=== PATIENT | male | born 1955 | race Caucasian/White ===

== ENCOUNTER 2017-11-02 05:00 | Emergency (ER) | payer OTHER ==
--- NOTE | 2017-11-02 05:48 | ER Document Report ---
ED Medical Screen (RME) - General Chief Complaint: Flank Pain Stated Complaint: FLANK PAIN Time Seen by Provider: 11/02/17 05:40 Notes: 61-year-old male comes emergency department for chief complaint of left flank pain, he states it feels like a dull and increasing pain, he states pain worsened and he became nauseated. He denies vomiting, denies abdominal pain, denies chest pain, denies dizziness or lightheadedness. No history of kidney stones. TRAVEL OUTSIDE OF THE [place] IN LAST 30 DAYS: No - Related Data Allergies/Adverse Reactions: Penicillins Allergy (Verified 08/07/14 08:52) Past Medical History - Past Medical History Cardiac Medical History: Reports: Hx Hypercholesterolemia, Hx Hypertension Denies: Hx Coronary Artery Disease, Hx Heart Attack Pulmonary Medical History: Denies: Hx Asthma, Hx Bronchitis, Hx COPD, Hx Pneumonia Neurological Medical History: Denies: Hx Cerebrovascular Accident, Hx Seizures Endocrine Medical History: Reports: Hx Diabetes Mellitus Type 2 - borderline Musculoskeltal Medical History: Reports Hx Arthritis - hands, knees, back - Immunizations Hx Diphtheria, Pertussis, Tetanus Vaccination: No Physical Exam - Vital signs Vitals: Temp Pulse Resp BP Pulse Ox 97.9 F 64 20 170/93 H 97 11/02/17 05:06 11/02/17 05:06 11/02/17 05:06 11/02/17 05:06 11/02/17 05:06 - General General appearance: Appears well In distress: None - Abdominal Inspection: Normal Tenderness: Nontender. No: Tender Course - Re-evaluation Re-evalutation: Somewhat hypertensive, vital signs otherwise unremarkable. Indicates the left CVA area as the location of pain. No overt CVA tenderness, soft nontender abdomen, well-appearing patient, declines pain medication, based on his presentation, normal distal pulses, I have fairly low suspicion of aortic dissection, more likely ureterolithiasis. Workup pending. I have greeted and performed a rapid initial assessment of this patient. A comprehensive ED assessment and evaluation of the patient, analysis of test results and completion of the medical decision making process will be conducted by additional ED providers. - Vital Signs Vital signs: Temp Pulse Resp BP Pulse Ox 97.9 F 64 20 170/93 H 97 11/02/17 05:06 11/02/17 05:06 11/02/17 05:06 11/02/17 05:06 11/02/17 05:06 Doctor's Discharge - Discharge Referrals: SCOTT LEON MD [Primary Care Provider] - Follow up as needed
[2017-11-02 06:30] LABS: ABSOLUTE BASOPHILS # (AUTO) 0.1 10^3/uL (0.0-0.2); ABSOLUTE EOSINOPHILS # (AUTO) 0.3 10^3/uL (0.0-0.6); ABSOLUTE LYMPHOCYTES (AUTO) 1.4 10^3/uL (0.5-4.7); ABSOLUTE MONOCYTES (AUTO) 0.7 10^3/uL (0.1-1.4); ABSOLUTE NEUT (AUTO) 6.3 10^3/uL (1.7-8.2); BASOPHILS % (AUTO) 0.7 % (0-2); HEMATOCRIT 44.1 % (37.9-51.0); HEMOGLOBIN 15.2 g/dL (13.5-17.0); LYMPHOCYTES % (AUTO) 15.9 % (13-45); MEAN CORPUSCULAR HEMOGLOBIN 31.4 pg (27.0-33.4); MEAN CORPUSCULAR HGB CONC 34.4 g/dL (32.0-36.0); MEAN CORPUSCULAR VOLUME 91 fl (80-97); MONOCYTES % (AUTO) 8.2 % (3-13); PLATELET COUNT 223 10^3/uL (150-450); RED BLOOD COUNT 4.83 10^6/uL (4.35-5.55); RED CELL DISTRIBUTION WIDTH 13.4 % (11.5-14.0); SEGMENTED NEUTROPHILS % (AUTO) 72.2 % (42-78); TOTAL CELLS COUNTED % (AUTO) 100 %; WHITE BLOOD COUNT 8.8 10^3/uL (4.0-10.5)
[2017-11-02 06:41] LABS: APPEARANCE,URINE CLEAR; BILIRUBIN,URINE NEGATIVE (NEGATIVE); COLOR,URINE YELLOW; GLUCOSE, URINE NEGATIVE (NEGATIVE); KETONES,URINE NEGATIVE (NEGATIVE); LEUKOCYTE ESTERASE,URINE NEGATIVE (NEGATIVE); NITRITE,URINE NEGATIVE (NEGATIVE); PROTEIN,URINE NEGATIVE (NEGATIVE); URINE SPECIFIC GRAVITY 1.016; UROBILINOGEN,URINE NEGATIVE mg/dL (<2.0)
[2017-11-02 06:58] LABS: ALANINE AMINOTRANSFERASE 31 U/L (21-72); ALBUMIN 4.2 g/dL (3.5-5.0); ALKALINE PHOSPHATASE 81 U/L (38-126); ANION GAP 12 (5-19); ASPARTATE AMINO TRANSFERASE 26 U/L (17-59); BILIRUBIN,DIRECT 0.2 mg/dL (0.0-0.4); BILIRUBIN,TOTAL 0.5 mg/dL (0.2-1.3); BLOOD UREA NITROGEN 19 mg/dL (7-20); CALCIUM 9.7 mg/dL (8.4-10.2); CARBON DIOXIDE 24 mmol/L (22-30); CHLORIDE 105 mmol/L (98-107); GLUCOSE 121 mg/dL (75-110); POTASSIUM 4.3 mmol/L (3.6-5.0); SODIUM 140.8 mmol/L (137-145); TOTAL PROTEIN 6.9 g/dL (6.3-8.2)
--- NOTE | 2017-11-02 07:02 | RADIOLOGY REPORT (SQ) ---
CT abdomen and pelvis without contrast on 11/02/2017 CLINICAL INDICATION: Left-sided back pain, nausea TECHNIQUE: Multiple axial images are obtained throughout the abdomen and pelvis without the administration of contrast. This exam was performed according to our departmental dose-optimization program, which includes automated exposure control, adjustment of the mA and/or kV according to patient size and/or use of iterative reconstruction technique. Total DLP is 1090.21 mGy*cm. COMPARISON: None FINDINGS: Abdomen: There is minimal basilar atelectasis. Cyst is noted in the lower pole of the right kidney. There is mild left hydronephrosis and proximal left hydroureter to the level of a 5-6 mm left proximal ureteral stone at the L2-3 disc space level. There is minimal left perinephric stranding related to the obstruction. There are no other renal or ureteral stones. The unenhanced solid abdominal organs are otherwise unremarkable. Vascular calcifications are noted. There is no abdominal adenopathy. There is no free fluid or free air within the abdomen. There is a small umbilical hernia containing only fat. Pelvis: There is small left inguinal hernia containing only fat. There is no free fluid in the pelvis. There is no pelvic adenopathy. The pelvic portion of the GI tract including the appendix is unremarkable. Degenerative changes are noted in the spine. IMPRESSION: 1. Mild left hydronephrosis and proximal hydroureter to the level of a 5-6 mm left proximal ureteral stone. 2. Otherwise no acute abnormality.
--- NOTE | 2017-11-02 07:33 | ER Document Report ---
ED General - General Chief Complaint: Flank Pain Stated Complaint: FLANK PAIN Time Seen by Provider: 11/02/17 05:40 TRAVEL OUTSIDE OF THE [place] IN LAST 30 DAYS: No - HPI Notes: 61-year-old male presents to the ER with sudden onset of left flank pain. Patient stated 3 AM he had sudden onset of left flank pain positive nausea denies vomiting. Denies any fever or chills. Denies chest pain denies shortness of breath. Is an aching left flank pain he rates as moderate to severe. He has never had a history of stones in the past. Denies any hematuria or dysuria. Denies black bloody or tarry stools denies any falls or trauma. - Related Data Allergies/Adverse Reactions: Penicillins Allergy (Verified 11/02/17 06:14) Past Medical History - Social History Smoking Status: Unknown if Ever Smoked Chew tobacco use (# tins/day): No Drug Abuse: None Family History: CAD Patient has suicidal ideation: No Patient has homicidal ideation: No - Past Medical History Cardiac Medical History: Reports: Hx Hypercholesterolemia, Hx Hypertension Denies: Hx Coronary Artery Disease, Hx Heart Attack Pulmonary Medical History: Denies: Hx Asthma, Hx Bronchitis, Hx COPD, Hx Pneumonia Neurological Medical History: Denies: Hx Cerebrovascular Accident, Hx Seizures Endocrine Medical History: Reports: Hx Diabetes Mellitus Type 2 - borderline Renal/ Medical History: Denies: Hx Peritoneal Dialysis GI Medical History: Reports: Hx Gastroesophageal Reflux Disease Musculoskeletal Medical History: Reports Hx Arthritis - hands, knees, back - Immunizations Hx Diphtheria, Pertussis, Tetanus Vaccination: No Review of Systems - Review of Systems Constitutional: denies: Chills, Fever Cardiovascular: denies: Chest pain Male Genitourinary: denies: Testicular pain, Penile discharge Musculoskeletal: Back pain Skin: denies: Rash Neurological/Psychological: denies: Anxiety -: Yes All other systems reviewed and negative Physical Exam - Vital signs Vitals: Temp Pulse Resp BP Pulse Ox 97.9 F 64 20 170/93 H 97 11/02/17 05:06 11/02/17 05:06 11/02/17 05:06 11/02/17 05:06 11/02/17 05:06 - Notes Notes: GENERAL_APPEARANCE: well_nourished, alert, cooperative, appears uncomfortable VITALS: reviewed, see vital signs table. HEAD: no_swelling\tenderness on the head. EYES:conjunctiva_clear. NOSE: no_nasal_discharge. MOUTH: (-)decreased moisture. THROAT: no_throat_inflammation, no_airway_obstruction. no_lymphadenopathy NECK: supple, no_neck_tenderness, (-)thyromegaly. BACK: Left CVA_back_tenderness. CHEST_WALL: no_chest_tenderness. LUNGS: no_wheezing, no_rales, no_rhonchi, (-)accessory muscle use, good air exchange bilateral. HEART: normal_rate, normal_rhythm, normal_S1, normal_S2, (-)S3, (-)S4, no_ murmur, no_rub. ABDOMEN: soft, no_abd_tenderness, (-)guarding, (-)rebound, no_organomegaly, no_ abd_masses. EXTREMITIES: strength 5/5 in all_extremities, good pulses in all_extremities, no_swelling\tenderness in the extremities, no_edema. SKIN: warm, dry, good_color, no_rash. MENTAL_STATUS: speech_clear, oriented_X_3, normal_affect, responds_ appropriately to questions. Course - Re-evaluation Re-evalutation: 11/02/17 07:33 61-year-old male presents with sudden onset of left flank pain. Will get a CT to assess for kidney stone check urine to rule out infection for pyelonephritis some generalized blood work. We will give some IV fluids and pain medicine. 11/02/17 07:46 Patient is doing better we will give some more Toradol. He does have a 5 mm stone left proximal ureter. Spoke with him about follow-up with urology. Otherwise there is no signs of any infection or renal failure. He is safe for discharge - Vital Signs Vital signs: Temp Pulse Resp BP Pulse Ox 97.9 F 64 20 170/93 H 97 11/02/17 05:06 11/02/17 05:06 11/02/17 05:06 11/02/17 05:06 11/02/17 05:06 - Laboratory Result Diagrams: 11/02/17 05:38 11/02/17 05:38 Laboratory results interpreted by me: 11/02/17 11/02/17 05:38 06:07 Glucose 121 H Urine Blood MODERATE H - Diagnostic Test Radiology reviewed: Image reviewed Radiology results interpreted by me: 11/02/17 07:[address] 11/02/17 05:45 IMPRESSION: 1. Mild left hydronephrosis and proximal hydroureter to the level of a 5-6 mm left proximal ureteral stone. 2. Otherwise no acute abnormality. Discharge - Discharge Clinical Impression: Ureterolithiasis Condition: Good Disposition: HOME, SELF-CARE Instructions: Kidney Stone ([facility]) Additional Instructions: Please follow-up with Dr. London from urology [facility] Prescriptions: Ondansetron [Zofran Odt 4 mg Tablet] 1 - 2 tab PO Q4HP PRN #10 tab.rapdis PRN Reason: Ketorolac Tromethamine 10 mg PO QID PRN #12 tablet PRN Reason: Pain Scale Of 5 Tamsulosin HCl [Flomax] 0.4 mg PO DAILY #14 cap.er.24h Referrals: SCOTT LEON MD [Primary Care Provider] - Follow up as needed SOHEILA LONDON MD [NO LOCAL MD] - Follow up as needed
[2017-11-02] MEDS ORDERED: KETOROLAC TROMETHAMINE INJ/PF 30 MG/1 ML SDV IV ONE (07:45)
[2017-11-02 08:23] VITALS: BP 139/84
== END 2017-11-02 08:22 | disposition home or self-care (01) ==
LOC: ER 05:00
DX: N20.1 Calculus of ureter (principal); R10.9 Unspecified abdominal pain; R11.0 Nausea; E78.00 Pure hypercholesterolemia, unspecified; I10 Essential (primary) hypertension; E11.9 Type 2 diabetes mellitus without complications; Z88.0 Allergy status to penicillin
CPT/HCPCS: 99284; 96374; 36415; 85025; 80053; 81001; 76380; J1885

== ENCOUNTER → 2017-11-17 | Outpatient (CLI) | payer OTHER | LOC: OD 15:45 | PROVIDERS: ATTEND Physician Assistant | DX: S81.802A Unspecified open wound, left lower leg, initial encounter (principal); X58.XXXA Exposure to other specified factors, initial encounter; Y93.9 Activity, unspecified; Y92.9 Unspecified place or not applicable | CPT/HCPCS: 87070; 87205 ==

== ENCOUNTER 2019-05-25 06:20 | Day surgery (SDC) | payer OTHER ==
[2019-05-25] MEDS ORDERED: LIDOCAINE 1% INJ-PF (10 MG/ML) 30 ML SDV ONE (07:28)
[2019-05-25] MEDS ORDERED: PROPOFOL INJ 200 MG/20 ML VIAL IV ONE (07:28)
--- NOTE | 2019-05-25 08:10 | Discharge Summary ---
Discharge Summary (SDC) - Discharge Final Diagnosis: Colon polyps; AVM Date of Surgery: 05/25/19 Discharge Date: 05/25/19 Condition: Good Treatment or Instructions: [facility] [place] [id number] POST ENDOSCOPY DISCHARGE INSTRUCTIONS 1. Diet: Start clear liquids that a regular diet as tolerated. 2. Resume all preoperative medications. All oral anticoagulants and aspirins can be resumed 24 hours after procedure. 3. If a polypectomy was performed some bleeding per rectum may occur. This should stop within 3 days. If not, please contact the office. 4. If you had a colonoscopy you may experience some bloating and delayed return of normal bowel function for several days, your regular bowel movement pattern should resume within a week. 5. Please contact [facility] at to make an appointment with Dr. Flores for 1 to 3 weeks following procedure. 6. If you have any questions or concerns regarding your care,treatment plan or follow up, please contact our office. 7. Per clinical guidelines we recommend you undergo a repeat colonoscopy in 3-5 years pending final pathology report. Referrals: MAI HOUSER MD [Primary Care Provider] - Discharge Diet: As Tolerated Discharge Activity: Activity As Tolerated Home Care Assistance: None Needed Report the Following to Your Physician Immediately: Shortness of Breath, Increase in Pain, Fever over 101 Degrees
--- NOTE | 2019-05-25 08:15 | Operative Report ---
Operative Report DATE OF SURGERY: 05/25/19 PREOPERATIVE DIAGNOSIS: 1. Screening for colorectal carcinoma POSTOPERATIVE DIAGNOSIS: 1. Ascending colon polyps x2. 2. Left colon AVM OPERATION: 1. Total colonoscopy to cecum. 2. Ascending colon polypectomy x2 with hot snare device and specimen retrieval SURGEON: PRISCILLA VASQUEZ ANESTHESIA: LMAC TISSUE REMOVED OR ALTERED: Ascending colon polyps x2 COMPLICATIONS: None ESTIMATED BLOOD LOSS: Scant INTRAOPERATIVE FINDINGS: See below PROCEDURE: Patient was taken to procedure room on fifth floor of endoscopy suite were LMAC anesthesia was induced. Surgical plan surgical timeout were conducted. The patient was placed in left lateral decubitus position. A rectal exam was performed. Posterior surface of the prostate gland was slightly enlarged, but without masses. This was an excellent study on a reasonably well-prepped bowel; there was a mild to moderate amount of liquid stool which aspirated easily. The scope was advanced all the way to the cecum. Visualization of the ileocecal was achieved. Photos were taken. The scope was withdrawn through the length of the colon checking mucosa carefully. In the ascending colon were 2 small sessile polyps. Both were removed with a hot snare device, specimens retrieved, and post polypectomy sites appropriate cautery artifact. Specimens were sent as a and B, from the ascending colon. The scope was withdrawn to the left colon without any pathologic findings. There is no evidence of diverticulosis. The scope was withdrawn through the anorectal canal. No other pathology seen. Scope was brought out to the patient's anus. He tolerated the procedure well. He was taken to the recovery in stable condition. Per surveillance guidelines, patient be an appropriate candidate for follow-up colonoscopy in 3 to 5 years pending final results of the path report.
[2019-05-25 08:38] VITALS: BP 129/82
== END 2019-05-25 08:40 | disposition home or self-care (01) ==
LOC: END 06:20
PROVIDERS: ATTEND Surgery
DX: Z12.11 Encounter for screening for malignant neoplasm of colon (principal); D12.3 Benign neoplasm of transverse colon; K55.20 Angiodysplasia of colon without hemorrhage; Z88.0 Allergy status to penicillin; R73.03 Prediabetes; Z79.82 Long term (current) use of aspirin; Z79.899 Other long term (current) drug therapy; Z86.79 Personal history of other diseases of the circulatory system
CPT/HCPCS: 45380; 45385; 88305 ×2; 00812; J3490; J2704; 812